=== PATIENT | female | born 1975 | race Caucasian/White ===

== ENCOUNTER → 2018-05-30 | Outpatient (CLI) | payer OTHER ==
[~2018-05-30] MED LIST: IBU800 PO; MET500 PO; PREN-85 PO
--- NOTE | 2018-05-30 13:00 | RADIOLOGY IMAGING REPORT ---
FACILITY: [facility] - [place] PATIENT NAME: Candy Parikh : 1975 MR: [id number] V: [id number] EXAM DATE: ORDERING PHYSICIAN: AVIS GUERRA TECHNOLOGIST: Location: [facility] - [place] Patient: Candy Parikh : 1975 Visit/Account:[id number] Date of Sevice: 05/30/2018 Limited abdominal ultrasound of the right upper quadrant Indication: Right upper quadrant pain , Comparison: None available Findings Liver is normal in size, contour, and echotexture and measures 15.8 cm in length. There is normal hep atopedal portal venous flow. Gallbladder wall thickness is 2.1 mm with multiple large stones and sludge within the gallbladder lum en. Negative sonographic Aldana's sign reported by the technologist. Common duct measures 4.1 mm in maximum diameter with no evidence of shadowing stone. The head and proximal body of the pancreas is unremarkable. The distal body and tail is obscured by o verlying bowel gas. Abdominal aorta and IVC are patent and unremarkable. The right kidney is normal in size, contour, and echotexture and measures 9.3 cm in length. IMPRESSION: 1. Cholelithiasis without sonographic evidence of acute or chronic cholecystitis. The remainder of the right upper quadrant ultrasound is within normal limits. Report Dictated By: Panchito Regalado at 05/30/2018 12:53 PM Report E-Signed By: Panchito Regalado at 05/30/2018 12:55 PM WSN:[id number]
== END ==
LOC: US 10:36
PROVIDERS: ATTEND Physician Assistant
DX: K80.20 Calculus of gallbladder without cholecystitis without obstruction (principal)
CPT/HCPCS: 76705

== ENCOUNTER 2018-06-16 02:19 | Day surgery (SDC) | payer OTHER ==
[2018-06-16] VITALS (7 sets, daily range): BP systolic 100–138; BP diastolic 67–93
[~2018-06-16] VITALS: Ht 154.9 cm; Wt 49.9 kg
[~2018-06-16 02:19] MED LIST changes: +LORA-763 PO; +NORG1TAB97 PO; +VALA500T63 PO
[2018-06-16] MEDS ORDERED: NORMOSOL R SOLN(*) 1000 ML BAG 1,000 ML IV PRN (10:30)
[2018-06-16] MEDS ORDERED: MIDAZOLAM 2 MG/2 ML VIAL IVP PRN (10:30)
[2018-06-16] MEDS ORDERED: AMPICILLIN/SULBACT (*) 3 GM VL 3 GM in NS(*) 0.9% 100 ML BAG 100 ML IVPB ONE (10:30)
[2018-06-16] MEDS ORDERED: INDOCYANINE GREEN 25 MG VIAL IVP ONE (10:30)
[2018-06-16] MEDS ORDERED: ACETAMINOPHEN 500 MG TAB PO ONE (10:30)
[2018-06-16] MEDS ORDERED: LIDOCAINE/SOD BICARB 8.4% SYR ID ONE (10:30)
[2018-06-16] MEDS ORDERED: PREGABALIN 150 MG CAPSULE PO ONE (10:30)
[2018-06-16] MEDS ORDERED: FAMOTIDINE 20 MG TAB PO ONE (10:30)
[2018-06-16] MEDS ORDERED: ROPIVACAINE 0.5% 20 ML VIAL ONE (11:31)
[2018-06-16] MEDS ORDERED: HYDROmorphone HCL 2 MG/ML SDV ONE (12:29)
[2018-06-16] MEDS ORDERED: DOCU-416 PO (13:56)
[2018-06-16] MEDS ORDERED: OXYC-854 PO (13:56)
--- NOTE | 2018-06-16 13:58 | Short(Outpt) Discharge Summary ---
Discharge Summary Reason for Hosp/Final Diag: (1) Cholelithiasis Status: Chronic Hospital Course & Plan: Robotic giorgi completed without problems. Departure Discharge to: Home, Self Care Discharge Instructions Home Meds Active Scripts Docusate Sodium (COLACE) 100 Mg Capsule, 1 CAP PO BID, #30 CAP 0 Refills TAKE WITH A FULL GLASS OF WATER Prov:PARUL BONILLA MD 06/16/18 Oxycodone Hcl/Acet 5/325 Mg (ENDOCET 5-325 TABLET) 1 Each Tablet, 1 TAB PO Q4H PRN for PAIN, #20 TAB 0 Refills Prov:PARUL BONILLA MD 06/16/18 Reported Medications Loratadine/Pseudoephedrine (LORATADINE-D 24HR TABLET) 1 Each Tab.er.24h, 1 EACH PO DAILY 06/12/18 Norgestimate-Ethinyl Estradiol (MONONESSA) 1 Each Tablet, 1 EACH PO DAILY 06/12/18 Valacyclovir Hcl (VALACYCLOVIR) 500 Mg Tablet, 500 MG PO DAILY 06/12/18 Metformin Hcl (Glucophage) 500 Mg Tab, 500 MG PO BIDBS, 0 Refills take 1 tablet by mouth twice a day at breakfast and supper, take home meds 08/13/09 Discontinued Reported Medications Vits W-Ca,Fe,Fa(<1MG) () 1 Each Tablet, 1 EACH PO DAILY, TAB 0 Refills take 1 tablet by mouth daily while 08/13/09 Ibuprofen (Motrin) 800 Mg Tab, 800 MG PO Q8H, #30 TAB 0 Refills take 1 tablet by mouth every 8 hours as needed for pain 08/13/09 Follow up Referrals: General Surgery - 06/30/18 @ Surgery, General with PARUL BONILLA MD You have a follow up appointment scheduled with Dr. Bonilla on 06/30/18, at 11:30am. Diet: Regular Activity: As Tolerated Special Instructions: You may remove the white surgical dressings on 06/18/18, then you can shower. After showering, leave the incisions open to air but leave the steristrips in place until they fall off on their own. Do not immerse the incisions for 2 weeks. Problem Qualifiers (1) Cholelithiasis: Cholelithiasis location: gallbladder Cholecystitis presence: without cholecystitis Biliary obstruction: without biliary obstruction Qualified Codes: K80.20 - Calculus of gallbladder without cholecystitis without obstruction PARUL BONILLA MD Jun 16, 2018 13:58
--- NOTE | 2018-06-16 14:05 | Post Operative Progress Note ---
Post Operative Progress Note Date: Jun 16, 2018 Time: 14:00 Surgeon: Ramon Dictation number: [id number] Anesthesia: GETA by Dr. Tadeo Pre-Op Diagnosis: Symptomatic Gallstones Post-Op Diagnosis: ABDELRAHMAN Findings: C/W dx Procedure(s): Robotic Loretta Specimen Removed:(May be N/A): GB and contents Complications: None Fluids: See anesthesia record Estimated Blood Loss: Minimal Date OP Note Dictated: Jun 16, 2018 Time OP Note Dictated: 14:01 PARUL BONILLA MD Jun 16, 2018 14:05
[2018-06-16] MEDS ORDERED: SUGAMMADEX SOD 500 MG/5 ML SDV ONE (14:14)
[2018-06-16] MEDS ORDERED: DEXAMETHASONE SOD PHOS 10MG/ML ONE (14:14)
[2018-06-16] MEDS ORDERED: PROPOFOL EMUL(*) 10MG/ML 20 ML 20 ML ONE (14:14)
[2018-06-16] MEDS ORDERED: ONDANSETRON 4 MG/2 ML VIAL ONE (14:14)
[2018-06-16] MEDS ORDERED: fentaNYL CITR 100 MCG/2 ML AMP ONE (14:28)
[2018-06-16] MEDS ORDERED: NORMOSOL R SOLN(*) 1000 ML BAG 1,000 ML IV ONE (14:55)
--- NOTE | 2018-06-16 15:31 | OPERATIVE REPORT 1 ---
EVENT DATE: June 16, 2018 SURGEON: Winston Navarro MD ANESTHESIOLOGIST: Tonny Tadeo MD ANESTHESIA: General endotracheal anesthesia. PREOPERATIVE DIAGNOSIS Symptomatic gallstones. POSTOPERATIVE DIAGNOSIS Symptomatic gallstones. PROCEDURE PERFORMED Robotic cholecystectomy. COMPLICATIONS None. CONDITION Stable. BLOOD LOSS Minimal. INDICATIONS This is a 42-year-old female who presented to my office with a couple of years, but ultimately getting worse symptomatic of lightheadedness, postprandial nausea, some right scapular pain after eating, and bloating, but no right upper quadrant abdominal pain. Her PCM had gotten a right upper quadrant ultrasound which revealed an uninflamed gallbladder, but it was full of gallstones. She was referred to me, and I discussed the options of proceeding with a cholecystectomy. She ultimately provided consent for this. DESCRIPTION OF PROCEDURE The patient was brought to the operating room and placed supine on the operating table. General endotracheal anesthesia was administered. Her abdomen was prepped and draped in a sterile fashion. Timeout was completed, and I injected the infraumbilical skin with 0.5% ropivacaine plain. I made a curvilinear smiley-face type incision in the infraumbilical rim, dissected through the dermis and subcutaneous fat, and identified the midline fascia. I made a vertical incision in the midline fascia, grasped the fascial edges with Jarocho clamps, retracted the fascia towards the ceiling, and then bluntly entered the peritoneal cavity with my finger. I placed two interrupted 0 Vicryl sutures transversely through the vertical fascial defect, inserted in a 12 mm Heaven- type port through this sound, and secured it in place with sutures. I insufflated the abdomen to a pressure of 15 mmHg and inserted the robotic camera through the port. Under direct visualization, I placed an 8 mm robotic port in the right mid abdomen and two 8 mm ports in the left side of the abdomen, one in the anterior axillary line just below the costal margin and one half way between the umbilicus and this port. Next, I placed the patient in reverse Trendelenburg and planed towards her left. I moved the viscera from the right upper quadrant and brought in the robot, docked and targeted the robot, inserted the instruments, and then scrubbed out and went to the console. I then grasped the fundus of the gallbladder and retracted it towards the patient's right shoulder. There were some adhesions to the infundibulum which I took down easily with electrocautery. I then grabbed the infundibulum and retracted it towards the patient's right hip. Because of this patient's very thin body habitus, all of the tissue planes were easily seen. I cleaned off the cystic duct and artery circumferentially for quite some distance and then clipped the artery proximally and distally, clipped the duct with three clips distally and one clip at the infundibular-cystic duct junction. I did use Firefly to confirm that the cystic duct was where I was clipping it and dividing it. I was well away from the common duct system. After the artery and duct were clipped and cut, I then divided the posterior attachments to the gallbladder, it from the gallbladder fossa, then placed it in a surgical specimen retrieval bag, and removed from the abdomen through the umbilical port site. I then inspected the gallbladder fossa as well as the cystic and artery stumps, and there was no bleeding or bile leaks from anywhere, and the clips were in good position. I then removed all the robotic instruments, undocked the robot, the desufflated the abdomen, and removed all the ports. I then closed the fascia in the midline with another 0 Vicryl [id number] suture and tied all three of these down with good reapproximation of the fascial edges. I then closed the skin at each port site with 4-0 subcuticular suture. Skin was cleaned and dried, and Steri- Strips were applied, followed by sterile surgical dressings. The patient was awakened and extubated in the operating room and transported to the recovery room in stable condition having tolerated the procedure without any apparent problems. GAYLA
== END 2018-06-16 15:15 | disposition home or self-care (01) ==
LOC: OR 02:19
PROVIDERS: ATTEND Surgery
DX: K80.20 Calculus of gallbladder without cholecystitis without obstruction (principal); E11.9 Type 2 diabetes mellitus without complications
CPT/HCPCS: 36416; 47562; 81025; 82948; 84443; 88304; J0295; J1100; J1170; J2250; J2405; J2704; J2795; J3010; J7050; S2900

== ENCOUNTER 2018-06-18 10:19 | Emergency (ER) | payer OTHER ==
[~2018-06-18 10:19] MED LIST changes: +DOCU-416 PO; +OXYC-854 PO
[2018-06-18 10:52] LABS: PLATELET COUNT, AUTOMATED 274 K/uL (150-450)
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
--- NOTE | 2018-06-18 11:26 | RADIOLOGY IMAGING REPORT ---
FACILITY: [facility] - [place] PATIENT NAME: Candy Parikh : 1975 MR: [id number] V: [id number] EXAM DATE: ORDERING PHYSICIAN: EPI CORNELIUS TECHNOLOGIST: [place] [facility] [place]andy Parikh : 1975 Visit/Account:[id number] Date of Sevice: 06/18/2018 CHEST PA AND LAT HISTORY: 42-year-old female with postoperative pain. COMPARISON: Abdominal ultrasound from May 30, 2018. FINDINGS: Cardiomediastinal contours: The heart size is normal. Lungs and pleura: There is mild bibasilar atelectasis; left side greater than right. There is no pneu mothorax or infiltrate. Bones/soft tissues: There are no findings of a fracture. Abdomen: There is pneumoperitoneum underneath the right hemidiaphragm likely related to the patient's recent surgery. IMPRESSION: 1. Pneumoperitoneum right side likely related to recent surgery. 2. Bibasilar atelectasis. Results were called nurse practitioner covering for Dr. Cornelius at 06/18/2018 11:22 AM. Report Dictated By: Jon Plummer MD at 06/18/2018 11:14 AM Report E-Signed By: Jon Plummer MD at 06/18/2018 11:22 AM WSN:[id number]
[2018-06-18 11:30] VITALS: BP 136/86
== END 2018-06-18 11:56 | disposition home or self-care (01) ==
LOC: ER 10:51
DX: R10.11 Right upper quadrant pain (principal); Z90.49 Acquired absence of other specified parts of digestive tract
CPT/HCPCS: 71046; 82040; 82247; 82310; 82374; 82435; 82565; 82947; 83690; 84075; 84132; 84155; 84295; 84450; 84460; 84520; 85025; 99283